=== PATIENT | female | born 1960 | race Two or more races ===

== ENCOUNTER 2017-06-20 19:16 | Emergency (ER) | payer SELFPAY ==
[~2017-06-20] VITALS: Ht 165.1 cm; Wt 90.0 kg
[2017-06-21] MEDS ORDERED: IBUPROFEN 600MG TABLET PO ONE (02:30)
[2017-06-21 06:02] VITALS: BP 110/59
== END 2017-06-21 07:29 | disposition home or self-care (01) ==
LOC: ER 19:20
DX: S09.90XA Unspecified injury of head, initial encounter (principal); M25.461 Effusion, right knee; W01.0XXA Fall on same level from slipping, tripping and stumbling without subsequent striking against object, initial encounter; Y93.89 Activity, other specified; Y92.89 Other specified places as the place of occurrence of the external cause; Y99.8 Other external cause status
CPT/HCPCS: 70450; 72040; 73562; 99284; L1830